=== PATIENT | male | born 1960 | race Caucasian/White ===

== ENCOUNTER 2022-09-28 08:15 | Inpatient (IN) | payer OTHER ==
[~2022-09-28] VITALS: Ht 180.3 cm; Wt 99.8 kg
[2022-09-28 08:20] VITALS: BP_SYST 207
[2022-09-28] MEDS ORDERED: ONDANSETRON HCL 4 MG/2 ML VIAL IVP ONE (09:00)
[2022-09-28] MEDS ORDERED: FAMOTIDINE PF 20 MG/2 ML VIAL IVP ONE (09:00)
[2022-09-28] MEDS ORDERED: cloNIDine HCL 0.1 MG TABLET PO ONE (09:00)
[2022-09-28] MEDS ORDERED: MAG-AL HYDROX/SIMETH 30 ML UDC PO ONE (09:00)
[2022-09-28] MEDS ORDERED: cloNIDine HCL 0.1 MG TABLET ONE (09:06)
[2022-09-28] MEDS ORDERED: hydrALAZINE HCL 25 MG TABLET PO ONE (09:15)
[2022-09-28 09:38] LABS: BASOPHILS % (AUTO) 0.3 % (0.0-2.0); HEMATOCRIT 49.6 % (36-54); HEMOGLOBIN 16.6 g/dL (14.0-18.0); LYMPHOCYTES # (AUTO) 0.7 K/uL (1.0-5.5); MEAN CORPUSCULAR HEMOGLOBIN 30 pg (27-31); MEAN CORPUSCULAR HGB CONC 34 % (32-36); MEAN CORPUSCULAR VOLUME 91 fL (79.0-98.0); MONOCYTES # (AUTO) 0.8 K/uL (0.0-1.0); MONOCYTES % (AUTO) 6.3 % (1.7-9.3); NEUTROPHILS # (AUTO) 11.6 K/uL (1.8-7.7); NEUTROPHILS % (AUTO) 88.4 % (40.0-70.0); PLATELET COUNT (AUTO) 177 K/uL (130-430); RED BLOOD CELL COUNT(AUTO) 5.48 MIL/uL (4.2-6.2); RED CELL DISTRIBUTION WIDTH 13.7 % (9.0-15.0); WHITE BLOOD COUNT (AUTO) 13.1 K/uL (4.8-10.8)
[2022-09-28 09:50] LABS: ANION GAP 10 (5-15); CALCIUM 9.3 mg/dL (8.4-11.0); CHLORIDE 98 mmol/L (98-107); CREATININE 1.36 mg/dL (0.55-1.30); GLUCOSE 151 mg/dL (70-99); UREA NITROGEN, BLOOD 10 mg/dL (8-21)
[2022-09-28 09:54] LABS: GFR AFRICAN AMERICAN 69 mL/min (>90)
[2022-09-28 09:58] LABS: ALANINE AMINOTRANSFERASE 26 U/L (12-78); ASPARTATE AMINOTRANSFERASE 25 U/L (10-37); LIPASE 58 U/L (73-393); TOTAL BILIRUBIN 0.6 mg/dL (0.0-1.0)
[2022-09-28] MEDS ORDERED: MORPHINE 4 MG INJ. 4 MG/ML VIAL IVP ONE ×2 (10:30→14:45)
[2022-09-28] MEDS ORDERED: KCL 20 mEq in D5NS 1000 mL 1,000 ML IV ONE (15:15)
[2022-09-28] MEDS ORDERED: metroNIDAZOLE 500 mg/NS 100 ML IV ONE (15:15)
[2022-09-28] MEDS: HYDROmorphone 1 MG/ML INJ. CARTRIDGE IVP PRN (17:42)
[2022-09-28] MEDS ORDERED: ENOXAPARIN SODIUM 40 MG/0.4 ML SYRINGE SUBCUT ONE (21:30)
[2022-09-28] MEDS: LOSARTAN POTASSIUM 50 MG TABLET (COZAAR) PO SCH (22:16)
[2022-09-29] MEDS ORDERED: metroNIDAZOLE 500 mg/NS 100 ML IV SCH
[2022-09-29] MEDS: HYDROmorphone 1 MG/ML INJ. CARTRIDGE IVP PRN ×4 (00:57→23:05)
[2022-09-29 08:50] VITALS: BP_SYST 157
[2022-09-29 08:53] LABS: BASOPHILS % (AUTO) 0.2 % (0.0-2.0); EOSINOPHILS % (AUTO) 0.3 % (0.0-4.0); HEMATOCRIT 48.8 % (36-54); HEMOGLOBIN 16.5 g/dL (14.0-18.0); LYMPHOCYTES # (AUTO) 1.1 K/uL (1.0-5.5); LYMPHOCYTES % (AUTO) 8.5 % (20.5-51.5); MEAN CORPUSCULAR HEMOGLOBIN 31 pg (27-31); MEAN CORPUSCULAR HGB CONC 34 % (32-36); MEAN CORPUSCULAR VOLUME 91 fL (79.0-98.0); MONOCYTES # (AUTO) 1.9 K/uL (0.0-1.0); MONOCYTES % (AUTO) 13.8 % (1.7-9.3); NEUTROPHILS # (AUTO) 10.4 K/uL (1.8-7.7); NEUTROPHILS % (AUTO) 77.2 % (40.0-70.0); PLATELET COUNT (AUTO) 162 K/uL (130-430); RED BLOOD CELL COUNT(AUTO) 5.35 MIL/uL (4.2-6.2); RED CELL DISTRIBUTION WIDTH 14.2 % (9.0-15.0); WHITE BLOOD COUNT (AUTO) 13.5 K/uL (4.8-10.8)
[2022-09-29 09:30] LABS: CALCIUM 8.6 mg/dL (8.4-11.0); CREATININE 1.44 mg/dL (0.55-1.30)
[2022-09-29] MEDS: LOSARTAN POTASSIUM 50 MG TABLET (COZAAR) PO SCH (10:39)
[2022-09-29 11:36] VITALS: BP_SYST 144
[2022-09-29] MEDS: metroNIDAZOLE 500 mg/NS 100 ML IV SCH ×2 (14:36→23:52)
[2022-09-29 16:23] VITALS: BP_SYST 148
[2022-09-29] MEDS: KCL 20 mEq in D5/0.45NS 1000mL 1,000 ML IV SCH (19:07)
[2022-09-29 20:00] VITALS: BP_SYST 153
[2022-09-29] MEDS: ENOXAPARIN SODIUM 40 MG/0.4 ML SYRINGE SUBCUT SCH (21:07)
[2022-09-30] VITALS: BP_SYST 144
[2022-09-30] MEDS: ONDANSETRON HCL 4 MG/2 ML VIAL IVP PRN ×2 (04:16→18:37)
[2022-09-30] MEDS: ACETAMINOPHEN 325 MG TABLET PO PRN (04:22)
[2022-09-30] MEDS: metroNIDAZOLE 500 mg/NS 100 ML IV SCH ×3 (06:17→23:07)
[2022-09-30 07:22] LABS: BASOPHILS % (AUTO) 0.2 % (0.0-2.0); EOSINOPHILS # (AUTO) 0.1 K/uL (0.0-0.4); EOSINOPHILS % (AUTO) 0.9 % (0.0-4.0); HEMATOCRIT 44.5 % (36-54); HEMOGLOBIN 15.2 g/dL (14.0-18.0); LYMPHOCYTES # (AUTO) 0.9 K/uL (1.0-5.5); LYMPHOCYTES % (AUTO) 8.8 % (20.5-51.5); MEAN CORPUSCULAR HEMOGLOBIN 31 pg (27-31); MEAN CORPUSCULAR HGB CONC 34 % (32-36); MEAN CORPUSCULAR VOLUME 92 fL (79.0-98.0); MONOCYTES # (AUTO) 1.1 K/uL (0.0-1.0); MONOCYTES % (AUTO) 11.2 % (1.7-9.3); NEUTROPHILS % (AUTO) 78.9 % (40.0-70.0); PLATELET COUNT (AUTO) 139 K/uL (130-430); RED BLOOD CELL COUNT(AUTO) 4.86 MIL/uL (4.2-6.2); RED CELL DISTRIBUTION WIDTH 13.8 % (9.0-15.0); WHITE BLOOD COUNT (AUTO) 10.1 K/uL (4.8-10.8)
[2022-09-30 07:49] LABS: ALBUMIN 2.7 g/dL (3.4-4.8); CALCIUM 8.2 mg/dL (8.4-11.0); CREATININE 1.17 mg/dL (0.55-1.30); TOTAL BILIRUBIN 0.7 mg/dL (0.0-1.0)
[2022-09-30 08:29] VITALS: BP_SYST 155
[2022-09-30] MEDS: LOSARTAN POTASSIUM 50 MG TABLET (COZAAR) PO SCH (09:20)
[2022-09-30] MEDS: KCL 20 mEq in D5/0.45NS 1000mL 1,000 ML IV SCH ×2 (09:20→22:21)
[2022-09-30] MEDS: HYDROmorphone 1 MG/ML INJ. CARTRIDGE IVP PRN ×2 (12:58→20:13)
[2022-09-30 16:00] VITALS: BP_SYST 150
[2022-09-30 20:00] VITALS: BP_SYST 155
[2022-09-30] MEDS: ENOXAPARIN SODIUM 40 MG/0.4 ML SYRINGE SUBCUT SCH (23:04)
[2022-10-01] MEDS: HYDROmorphone 1 MG/ML INJ. CARTRIDGE IVP PRN ×3 (00:10→21:15)
[2022-10-01] MEDS: metroNIDAZOLE 500 mg/NS 100 ML IV SCH ×3 (06:26→21:05)
[2022-10-01 08:01] VITALS: BP_SYST 148
[2022-10-01] MEDS: LOSARTAN POTASSIUM 50 MG TABLET (COZAAR) PO SCH (08:06)
[2022-10-01] MEDS: ONDANSETRON HCL 4 MG/2 ML VIAL IVP PRN ×2 (11:43→21:14)
[2022-10-01] MEDS: KCL 20 mEq in D5/0.45NS 1000mL 1,000 ML IV SCH (11:48)
[2022-10-01 12:15] VITALS: BP_SYST 153
[2022-10-01] MEDS: ACETAMINOPHEN 325 MG TABLET PO PRN (15:33)
[2022-10-01 17:42] VITALS: BP_SYST 162
[2022-10-01 20:00] VITALS: BP_SYST 165
[2022-10-01] MEDS: ENOXAPARIN SODIUM 40 MG/0.4 ML SYRINGE SUBCUT SCH ×2 (21:00→21:05)
[2022-10-02] VITALS: BP_SYST 151
[2022-10-02] MEDS: ACETAMINOPHEN 325 MG TABLET PO PRN (00:59)
[2022-10-02 01:55] LABS: BASOPHILS # (AUTO) 0.1 K/uL (0.0-0.2); BASOPHILS % (AUTO) 0.7 % (0.0-2.0); EOSINOPHILS # (AUTO) 0.3 K/uL (0.0-0.4); EOSINOPHILS % (AUTO) 3.3 % (0.0-4.0); HEMATOCRIT 45.4 % (36-54); HEMOGLOBIN 15.2 g/dL (14.0-18.0); LYMPHOCYTES # (AUTO) 1.3 K/uL (1.0-5.5); LYMPHOCYTES % (AUTO) 16.5 % (20.5-51.5); MEAN CORPUSCULAR HEMOGLOBIN 31 pg (27-31); MEAN CORPUSCULAR HGB CONC 34 % (32-36); MEAN CORPUSCULAR VOLUME 91 fL (79.0-98.0); MONOCYTES # (AUTO) 0.8 K/uL (0.0-1.0); MONOCYTES % (AUTO) 9.9 % (1.7-9.3); NEUTROPHILS # (AUTO) 5.3 K/uL (1.8-7.7); NEUTROPHILS % (AUTO) 69.6 % (40.0-70.0); PLATELET COUNT (AUTO) 197 K/uL (130-430); RED BLOOD CELL COUNT(AUTO) 4.97 MIL/uL (4.2-6.2); RED CELL DISTRIBUTION WIDTH 14.1 % (9.0-15.0); WHITE BLOOD COUNT (AUTO) 7.6 K/uL (4.8-10.8)
[2022-10-02 02:27] LABS: INR 1.1 (0.80-1.20)
[2022-10-02] MEDS: KCL 20 mEq in D5/0.45NS 1000mL 1,000 ML IV SCH (02:57)
[2022-10-02 03:01] LABS: ALBUMIN 2.7 g/dL (3.4-4.8); CALCIUM 8.5 mg/dL (8.4-11.0); CREATININE 1.17 mg/dL (0.55-1.30); TOTAL BILIRUBIN 0.5 mg/dL (0.0-1.0)
[2022-10-02] MEDS: metroNIDAZOLE 500 mg/NS 100 ML IV SCH ×3 (05:58→21:30)
[2022-10-02] MEDS: ONDANSETRON HCL 4 MG/2 ML VIAL IVP PRN ×3 (06:02→21:33)
[2022-10-02 08:00] VITALS: BP_SYST 157
[2022-10-02] MEDS ORDERED: ROCURONIUM BROMIDE 10 MG/ML (ZEMURON) IV ONE (08:47)
[2022-10-02] MEDS ORDERED: SUCCINYLCHOLINE CHLORIDE 20 MG/ML(QUELICIN) IVP ONE (08:47)
[2022-10-02] MEDS ORDERED: THROMBIN (BOVINE) 5000 UNITS/ VIAL TP ONE (08:47)
[2022-10-02] MEDS ORDERED: SUGAMMADEX SODIUM 200 MG/2 ML VIAL IV ONE (08:47)
[2022-10-02] MEDS ORDERED: LR 1,000 ML IV.SOLN IV ONE (08:47)
[2022-10-02] MEDS ORDERED: PROPOFOL 200MG/ 20ML VIAL (DIPRIVAN) IV ONE (08:47)
[2022-10-02] MEDS ORDERED: DEXAMETHASONE SOD PHOSPHATE 4 MG/ML VIAL IVP ONE (08:47)
[2022-10-02] MEDS ORDERED: HYDROmorphone 2 MG/ML VIAL IVP ONE (08:47)
[2022-10-02] MEDS ORDERED: LABETALOL 100 MG/ 20ML VIAL IV ONE (08:47)
[2022-10-02] MEDS ORDERED: CEFAZOLIN 2 GM IVPB PREMIX 50 ML IV ONE (08:47)
[2022-10-02] MEDS ORDERED: DESFLURANE 15 MIN GAS INH ONE (08:47)
[2022-10-02] MEDS: LOSARTAN POTASSIUM 50 MG TABLET (COZAAR) PO SCH (09:00)
[2022-10-02] MEDS ORDERED: NALOXONE HCL 0.4 MG/ML AMP (NARCAN) IVP PRN ×3 (09:30→11:15)
[2022-10-02] MEDS ORDERED: ONDANSETRON HCL 4 MG/2 ML VIAL IVP PRN (09:30)
[2022-10-02] MEDS ORDERED: HYDROmorphone 2 MG/ML VIAL IVP PRN (09:30)
[2022-10-02] MEDS ORDERED: HYDROmorphone 1 MG/ML INJ. CARTRIDGE IVP PRN ×2 (09:30)
[2022-10-02] MEDS ORDERED: MORPHINE 4 MG INJ. 4 MG/ML VIAL IVP PRN (11:15)
[2022-10-02] MEDS ORDERED: HYDROcodone/ACETAMIN 5-325 MG TAB (NORCO/ VICODIN) PO PRN (11:15)
[2022-10-02] MEDS ORDERED: ONDANSETRON HCL 4 MG/2 ML VIAL ONE (11:28)
[2022-10-02] MEDS: HYDROmorphone 1 MG/ML INJ. CARTRIDGE ONE ×2 (11:32→11:47)
[2022-10-02] MEDS ORDERED: HYDROmorphone 1 MG/ML INJ. CARTRIDGE ONE (12:01)
[2022-10-02] MEDS: HYDROmorphone 1 MG/ML INJ. CARTRIDGE IVP PRN ×3 (13:38→21:40)
[2022-10-02 13:54] VITALS: BP_SYST 158
[2022-10-02 16:07] VITALS: BP_SYST 156
[2022-10-02 20:00] VITALS: BP_SYST 159
[2022-10-02] MEDS: ENOXAPARIN SODIUM 40 MG/0.4 ML SYRINGE SUBCUT SCH (21:00)
[2022-10-03] VITALS (7 sets, daily range): BP systolic 147–185
[2022-10-03] MEDS: KCL 20 mEq in D5/0.45NS 1000mL 1,000 ML IV SCH ×3 (01:26→19:47)
[2022-10-03] MEDS: HYDROmorphone 1 MG/ML INJ. CARTRIDGE IVP PRN ×5 (01:44→20:00)
[2022-10-03] MEDS: metroNIDAZOLE 500 mg/NS 100 ML IV SCH ×3 (06:29→23:35)
[2022-10-03 07:09] LABS: BASOPHILS % (AUTO) 0.2 % (0.0-2.0); EOSINOPHILS # (AUTO) 0.1 K/uL (0.0-0.4); EOSINOPHILS % (AUTO) 0.5 % (0.0-4.0); HEMATOCRIT 44.9 % (36-54); HEMOGLOBIN 15.3 g/dL (14.0-18.0); LYMPHOCYTES # (AUTO) 1.3 K/uL (1.0-5.5); LYMPHOCYTES % (AUTO) 11.9 % (20.5-51.5); MEAN CORPUSCULAR HEMOGLOBIN 31 pg (27-31); MEAN CORPUSCULAR HGB CONC 34 % (32-36); MEAN CORPUSCULAR VOLUME 92 fL (79.0-98.0); MONOCYTES # (AUTO) 1.2 K/uL (0.0-1.0); MONOCYTES % (AUTO) 11.4 % (1.7-9.3); NEUTROPHILS # (AUTO) 8.1 K/uL (1.8-7.7); PLATELET COUNT (AUTO) 203 K/uL (130-430); RED BLOOD CELL COUNT(AUTO) 4.89 MIL/uL (4.2-6.2); RED CELL DISTRIBUTION WIDTH 13.9 % (9.0-15.0); WHITE BLOOD COUNT (AUTO) 10.7 K/uL (4.8-10.8)
[2022-10-03 07:53] LABS: ALBUMIN 2.5 g/dL (3.4-4.8); CALCIUM 8.5 mg/dL (8.4-11.0); CREATININE 1.16 mg/dL (0.55-1.30); TOTAL BILIRUBIN 0.6 mg/dL (0.0-1.0)
[2022-10-03] MEDS: LOSARTAN POTASSIUM 50 MG TABLET (COZAAR) PO SCH (10:00)
[2022-10-03] MEDS ORDERED: CARVEDILOL 25 MG TABLET (COREG) PO ONE (12:30)
[2022-10-03] MEDS ORDERED: cloNIDine HCL 0.1 MG TABLET PO PRN (18:00)
[2022-10-03] MEDS: ENOXAPARIN SODIUM 40 MG/0.4 ML SYRINGE SUBCUT SCH (23:09)
[2022-10-03] MEDS: CARVEDILOL 25 MG TABLET (COREG) PO SCH (23:12)
[2022-10-03] MEDS: ONDANSETRON HCL 4 MG/2 ML VIAL IVP PRN (23:36)
[2022-10-04] VITALS: BP_SYST 152
[2022-10-04] MEDS: MORPHINE 4 MG INJ. 4 MG/ML VIAL IVP PRN ×5 (02:20→21:57)
[2022-10-04] MEDS: SIMETHICONE 80 MG TAB.CHEW PO PRN ×2 (02:20→09:18)
[2022-10-04] MEDS: metroNIDAZOLE 500 mg/NS 100 ML IV SCH ×3 (06:31→21:57)
[2022-10-04 06:40] LABS: BASOPHILS % (AUTO) 0.3 % (0.0-2.0); EOSINOPHILS # (AUTO) 0.2 K/uL (0.0-0.4); EOSINOPHILS % (AUTO) 1.8 % (0.0-4.0); HEMATOCRIT 41.7 % (36-54); HEMOGLOBIN 14.1 g/dL (14.0-18.0); LYMPHOCYTES # (AUTO) 1.4 K/uL (1.0-5.5); LYMPHOCYTES % (AUTO) 13.3 % (20.5-51.5); MEAN CORPUSCULAR HEMOGLOBIN 31 pg (27-31); MEAN CORPUSCULAR HGB CONC 34 % (32-36); MEAN CORPUSCULAR VOLUME 92 fL (79.0-98.0); MONOCYTES # (AUTO) 1.1 K/uL (0.0-1.0); MONOCYTES % (AUTO) 10.7 % (1.7-9.3); NEUTROPHILS # (AUTO) 7.7 K/uL (1.8-7.7); NEUTROPHILS % (AUTO) 73.9 % (40.0-70.0); PLATELET COUNT (AUTO) 200 K/uL (130-430); RED BLOOD CELL COUNT(AUTO) 4.54 MIL/uL (4.2-6.2); RED CELL DISTRIBUTION WIDTH 13.7 % (9.0-15.0); WHITE BLOOD COUNT (AUTO) 10.4 K/uL (4.8-10.8)
[2022-10-04 06:43] LABS: ALBUMIN 2.3 g/dL (3.4-4.8); CREATININE 0.85 mg/dL (0.55-1.30); TOTAL BILIRUBIN 0.5 mg/dL (0.0-1.0)
[2022-10-04 08:00] VITALS: BP_SYST 134
[2022-10-04] MEDS: LOSARTAN POTASSIUM 50 MG TABLET (COZAAR) PO SCH (09:18)
[2022-10-04] MEDS: CARVEDILOL 25 MG TABLET (COREG) PO SCH ×2 (09:19→20:19)
[2022-10-04 20:00] VITALS: BP_SYST 152
[2022-10-04] MEDS: ENOXAPARIN SODIUM 40 MG/0.4 ML SYRINGE SUBCUT SCH (20:19)
[2022-10-04] MEDS: NORMAL SALINE 5 ML DISP.SYRIN IVF SCH (21:57)
[2022-10-05] VITALS: BP_SYST 149
[2022-10-05] MEDS: MORPHINE 4 MG INJ. 4 MG/ML VIAL IVP PRN ×2 (01:55→06:02)
[2022-10-05] MEDS: NORMAL SALINE 5 ML DISP.SYRIN IVF SCH ×2 (06:01→14:00)
[2022-10-05] MEDS: metroNIDAZOLE 500 mg/NS 100 ML IV SCH ×2 (06:01→14:00)
[2022-10-05 08:00] VITALS: BP_SYST 162
[2022-10-05] MEDS: LOSARTAN POTASSIUM 50 MG TABLET (COZAAR) PO SCH (09:03)
[2022-10-05] MEDS: CARVEDILOL 25 MG TABLET (COREG) PO SCH (09:03)
[2022-10-05 11:28] VITALS: BP_SYST 150
[2022-10-05 15:18] VITALS: BP_SYST 145
[2022-10-05 17:58] VITALS: BP_SYST 145
[2022-10-05] MEDS ORDERED: LOSA50TA3 PO (18:11)
[2022-10-05] MEDS ORDERED: CARV25TA55 PO (18:11)
[2022-10-05] MEDS ORDERED: DILAUDID (18:13)
[2022-10-05] MEDS ORDERED: HYDR2TAB4 PO (18:16)
== END 2022-10-05 18:35 | disposition home or self-care (01) | DRG 414 ==
LOC: SED 08:15 → SMU 15:14
PROVIDERS: ADMIT Family Medicine; ATTEND Family Medicine
PROC: 0FJ44ZZ Inspection of Gallbladder, Percutaneous Endoscopic Approach (ICD-10-PCS; 2022-10-02)
PROC: 0FN40ZZ Release Gallbladder, Open Approach (ICD-10-PCS; 2022-10-02)
PROC: 0FT40ZZ Resection of Gallbladder, Open Approach (ICD-10-PCS; principal; 2022-10-02 08:47)
DX: K80.66 Calculus of gallbladder and bile duct with acute and chronic cholecystitis without obstruction (principal); N17.0 Acute kidney failure with tubular necrosis; R65.10 Systemic inflammatory response syndrome (SIRS) of non-infectious origin without acute organ dysfunction; I10 Essential (primary) hypertension; K82.8 Other specified diseases of gallbladder; K66.0 Peritoneal adhesions (postprocedural) (postinfection); E66.9 Obesity, unspecified; Z20.822 Contact with and (suspected) exposure to COVID-19; Z88.0 Allergy status to penicillin; Z79.899 Other long term (current) drug therapy; Z68.30 Body mass index [BMI] 30.0-30.9, adult; Z53.31 Laparoscopic surgical procedure converted to open procedure
CPT/HCPCS: 36415; 71045; 71260-TC; 74018; 76376; 76705; 80048; 80053; 80061; 83690; 83735; 84484; 85025; 85610-TC; 86886; 86900; 86901; 87040; 87070-TC; 87075-TC; 88304; 93005; 96365; 96367; 96375; 96376; 99285; C1727; J0330; J0690; J1100; J1170; J1650; J1956; J2270; J2405; J2704; J3490; J7120; Q9967